=== PATIENT | male | born 2000 | race African-American/Black ===

== ENCOUNTER 2022-02-22 22:16 | Emergency (ER) | payer SELFPAY ==
[2022-02-23] MEDS ORDERED: cefTRIAXone\\ROCEPHIN 500 MG VIAL ONE (00:01)
[2022-02-23] MEDS ORDERED: Lidocaine 1% PF 5 ML VIAL ONE (00:03)
[2022-02-23 15:45] LABS: Chlam.trachomatis by PCR,Urine DETECTED (NotDetected)
== END 2022-02-23 00:49 | disposition home or self-care (01) ==
LOC: ERS 22:16
DX: R36.9 Urethral discharge, unspecified (principal); F17.290 Nicotine dependence, other tobacco product, uncomplicated
CPT/HCPCS: 87491; 87591; 96372; 99283; J0696